=== PATIENT | male | born 1980 | race Caucasian/White ===

== ENCOUNTER 2016-04-29 19:29 | Observation (INO) | payer SELFPAY ==
[~2016-04-29] VITALS: Ht 190.5 cm; Wt 129.0 kg
[2016-04-29] MEDS ORDERED: IV NORMAL SALINE 1000ML BAG 1,000 ML IV SCH (20:04)
[2016-04-29 20:25] LABS: BASO # 0.1 x10^3/uL (0.0-0.2); BASO % 1 % (0-3); EOS % 2 % (0-3); HEMATOCRIT 47.7 % (39.0-53.0); HEMOGLOBIN 16.4 g/dL (13.0-17.5); LYMPH # 3.2 x10^3/uL (1.0-4.8); LYMPH % 37 % (24-48); MEAN CORPUSCULAR HEMOGLOBIN 31 pg (25-35); MEAN CORPUSCULAR HGB CONC 34 g/dL (31-37); MEAN CORPUSCULAR VOLUME 91 fL (79-100); MONO % 10 % (0-9); NEUT % 49 % (31-73); PLATELET COUNT 190 x10^3/uL (140-400); RED BLOOD COUNT 5.23 x10^6/uL (4.30-5.70); RED CELL DISTRIBUTION WIDTH 13.6 % (11.5-14.5); WHITE BLOOD COUNT 8.6 x10^3/uL (4.0-11.0)
[2016-04-29 20:34] LABS: INR 1.2 (0.8-1.1); PROTHROMBIN TIME PATIENT 14.5 SEC (11.7-14.0)
[2016-04-29 20:38] LABS: CALCIUM 9.3 mg/dL (8.5-10.1); CREATININE 0.8 mg/dL (0.7-1.3); GFR 108.8; POTASSIUM 4.1 mmol/L (3.5-5.1)
[2016-04-29 20:45] LABS: DIRECT BILIRUBIN 0.1 mg/dL (0.0-0.2); TOTAL BILIRUBIN 0.7 mg/dL (0.2-1.0); TOTAL PROTEIN 7.7 g/dL (6.4-8.2)
[2016-04-29 22:04] LABS: BILIRUBIN,URINE NEGATIVE (NEG); GLUCOSE,URINE NEGATIVE (NEG); NITRITE,URINE NEGATIVE (NEG); PH,URINE 6.5; PROTEIN,URINE NEGATIVE (NEG-TRACE)
[2016-04-29 22:07] LABS: BARBITURATES NEG (NEG); BENZODIAZEPINES NEG (NEG); CANNABINOIDS NEG (NEG); COCAINE NEG (NEG); METHADONE NEG (NEG); OPIATES NEG (NEG); PHENCYCLIDINE NEG (NEG)
[2016-04-29 22:08] LABS: ETHANOL, URINE NEG (NEG)
[2016-04-29 22:15] LABS: BACTERIA,URINE 0 /HPF (0-FEW); SQUAMOUS EPITHELIAL CELL,UR OCC /LPF
--- NOTE | 2016-04-29 22:48 | PHYS DOC ---
Past Medical History Past Medical History: No Pertinent History Past Surgical History: Cholecystectomy, Other Additional Past Surgical Histo: BACK SX Additional Information: 1-2PPD Alcohol Use: Occasionally Drug Use: None Adult General Chief Complaint Chief Complaint: NEURO SYMPTOMS/DEFICITS HPI HPI 35-year-old male presenting to the emergency department today with unilateral facial weakness on the left side that started this morning. Nursing report states started at 1000AM. I clarified with the patient. He reports it started this morning when he woke up around 8:00. His is here and confirms this. He describes weakness of his left the face including difficulty closing the eye. He also has associated numbness of the face. Location face. Duration constant. No alleviating factors. Review of systems is negative for chest pain shortness of breath abdominal pain nausea vomiting or palpitations. All other review of systems is negative unless otherwise noted in history of present illness. Review of Systems Review of Systems SEE ABOVE. Current Medications Current Medications Current Medications Medications (Trade) Dose Ordered Sig/Giovanny Start Time Stop Time Status Last Admin Dose Admin Sodium Chloride (Iv Sodium Chloride 0.9% 1000ml Bag) 1,000 ml @ 1,000 mls/hr Q1H 04/29/16 20:04 04/29/16 21:03 DC 04/29/16 20:25 1,000 MLS/HR Allergies Allergies Allergies Coded Allergies Type Severity Reaction Last Updated Verified No Known Drug Allergies 04/29/16 No Physical Exam Physical Exam Constitutional: Well developed, well nourished, no acute distress, non-toxic appearance. HENT: Normocephalic, atraumatic, bilateral external ears normal, oropharynx moist, no oral exudates, nose normal. [] Eyes: PERRLA, EOMI, conjunctiva normal, no discharge. Neck: Normal range of motion, no tenderness, supple, no stridor. [] Cardiovascular:Heart rate regular rhythm, no murmur Lungs & Thorax: Bilateral breath sounds clear to auscultation [] Abdomen: Bowel sounds normal, soft, no tenderness, no masses, no pulsatile masses. Skin: Warm, dry, no erythema, no rash. [] Back: No tenderness, no CVA tenderness. Extremities: No tenderness, no cyanosis, no clubbing, ROM intact, no edema. [] Neurologic: Neuro exam: Mental status: Awake oriented and alert x3 Cranial nerves: Extraocular movements intact, eyebrows david bilaterally, however the patient has asymmetry of his smile. He also has difficulty closing his left eye, uvula elevation, shoulder shrug intact, tongue protrusion normal DTRs: 2+ Sensation: equal and normal in all extremities Strength: 5/5 in upper and lower extremities bilaterally Psychologic: Affect normal, judgement normal, mood normal. [] Current Patient Data Vital Signs Vital Signs Date Time Temp Pulse Resp B/P Pulse Ox O2 Delivery O2 Flow Rate FiO2 04/29/16 22:07 66 18 122/75 96 Room Air 04/29/16 19:55 98.1 98.1 Lab Values Laboratory Tests Test 04/29/16 20:11 04/29/16 21:50 White Blood Count 8.6x10^3/uL (4.0-11.0) Red Blood Count 5.23x10^6/uL (4.30-5.70) Hemoglobin 16.4g/dL (13.0-17.5) Hematocrit 47.7% (39.0-53.0) Mean Corpuscular Volume 91fL (79-100) Mean Corpuscular Hemoglobin 31pg (25-35) Mean Corpuscular Hemoglobin Concent 34g/dL (31-37) Red Cell Distribution Width 13.6% (11.5-14.5) Platelet Count 190x10^3/uL (140-400) Neutrophils (%) (Auto) 49% (31-73) Lymphocytes (%) (Auto) 37% (24-48) Monocytes (%) (Auto) 10% (0-9) H Eosinophils (%) (Auto) 2% (0-3) Basophils (%) (Auto) 1% (0-3) Neutrophils # (Auto) 4.2x10^3uL (1.8-7.7) Lymphocytes # (Auto) 3.2x10^3/uL (1.0-4.8) Monocytes # (Auto) 0.8x10^3/uL (0.0-1.1) Eosinophils # (Auto) 0.2x10^3/uL (0.0-0.7) Basophils # (Auto) 0.1x10^3/uL (0.0-0.2) Prothrombin Time 14.5SEC (11.7-14.0) H Prothrombin Time INR 1.2 (0.8-1.1) H PTT 29SEC (24-38) Sodium Level 139mmol/L (136-145) Potassium Level 4.1mmol/L (3.5-5.1) Chloride Level 103mmol/L (98-107) Carbon Dioxide Level 26mmol/L (21-32) Anion Gap 10 (6-14) Blood Urea Nitrogen 13mg/dL (8-26) Creatinine 0.8mg/dL (0.7-1.3) Estimated GFR (Cockcroft-Gault) 108.8 Glucose Level 100mg/dL (70-99) H Calcium Level 9.3mg/dL (8.5-10.1) Total Bilirubin 0.7mg/dL (0.2-1.0) Direct Bilirubin 0.1mg/dL (0.0-0.2) Aspartate Amino Transferase (AST) 31U/L (15-37) Alanine Aminotransferase (ALT) 50U/L (16-63) Alkaline Phosphatase 93U/L (46-116) Troponin I Quantitative < 0.017ng/mL (0.000-0.055) Total Protein 7.7g/dL (6.4-8.2) Albumin 4.0g/dL (3.4-5.0) Urine Collection Type Unknown Urine Color Yellow Urine Clarity Clear Urine pH 6.5 Urine Specific [place] 1.025 Urine Protein Negativemg/dL (NEG-TRACE) Urine Glucose (UA) Negativemg/dL (NEG) Urine Ketones (Stick) Negativemg/dL (NEG) Urine Blood Negative (NEG) Urine Nitrite Negative (NEG) Urine Bilirubin Negative (NEG) Urine Urobilinogen Dipstick 1.0mg/dL (0.2 mg/dL) Urine Leukocyte Esterase Negative (NEG) Urine RBC 1-2/HPF (0-2) Urine WBC 1-4/HPF (0-4) Urine Squamous Epithelial Cells Occ/LPF Urine Bacteria 0/HPF (0-FEW) Urine Mucus Mod/LPF Urine Opiates Screen Neg (NEG) Urine Methadone Screen Neg (NEG) Urine Barbiturates Neg (NEG) Urine Phencyclidine Screen Neg (NEG) Urine Amphetamine/Methamphetamine Neg (NEG) Urine Benzodiazepines Screen Neg (NEG) Urine Cocaine Screen Neg (NEG) Urine Cannabinoids Screen Neg (NEG) Urine Ethyl Alcohol Neg (NEG) Laboratory Tests 04/29/16 20:11 Laboratory Tests 04/29/16 20:11 EKG EKG [] Radiology/Procedures Radiology/Procedures [] Course & Med Decision Making Course & Med Decision Making Pertinent Labs and Imaging studies reviewed. (See chart for details) [] 35-year-old male presenting to the emergency department today with facial asymmetry that started at 8:00 this morning. Vital signs afebrile normal heart rate. Mild hypertension. The patient has history of hypertension high cholesterol and metabolic syndrome. Neurologic exam showed facial asymmetry that spared the forehead. The head unremarkable. Blood glucose within normal limits. Blood work obtained which showed normal CBC. Coags within normal limits. Urinalysis normal. Troponin negative. Chemistry panel unremarkable. Given the patient's neurologic findings the patient was admitted for MRI and neurology consultation. Dragon Disclaimer Dragon Disclaimer This electronic medical record was generated, in whole or in part, using a voice recognition dictation system. Departure Departure Impression: Primary Impression: Facial asymmetry Disposition: ADMITTED INPATIENT Admitting Physician: Carmenza Davison Condition: STABLE Referrals: NO PCP (PCP) SETH GONZALEZ MD Apr 29, 2016 22:48
[2016-04-29] MEDS ORDERED: ONDANSETRON PF 4 MG/2 ML VIAL. IV PRN (23:00)
[2016-04-29] MEDS ORDERED: MORPHINE SULFATE 2 MG/ML DISP.SYRIN. IV PRN (23:00)
--- NOTE | 2016-04-29 23:07 | RAD ---
INDICATION: 35-year-old male with left-sided facial droop and asymmetry all day. COMPARISON: None TECHNIQUE: Axial, noncontrast CT images obtained through the head. One or more of the following individualized dose reduction techniques were utilized for this examination: 1. Automated exposure control; 2. Adjustment of the mA and/or kV according to patient size; 3. Use of iterative reconstruction technique. FINDINGS: No acute intracranial process is identified, specifically no acute blood products, midline shift, mass effect or extra-axial fluid collections. Ventricles and sulci appear appropriate for patient's age. Basilar cisterns are maintained. There is prominence of the extra-axial CSF space at the level of the left insula, which may represent an arachnoid cyst. The visualized paranasal sinuses are clear. Mastoid air cells are clear. No calvarial fracture is present. Overlying scalp is intact. IMPRESSION: No acute intracranial process. Prominence of the CSF space along the left insula, may represent an arachnoid cyst. Electronically signed by: Madelyn Garcia (Apr 29, 2016 23:06:25)
--- NOTE | 2016-04-29 23:57 | ACF ---
Admission Forms Criteria NEUROLOGY GRG Clinical Indications for Admission to Inpatient Care (Place ' X' for any and all applicable criteria): Hospital admission is needed for appropriate care of the patient because of ANY ONE of the following: [ ]I. New-onset or worsening altered mental status remaining after emergency or observation level care (as appropriate) (9)(10)(11) [ ]II. Severe [employer] infections or inflammatory conditions, including ANY ONE of the following(1)(2)(3): [ ]a) Intracranial abscess [ ]b) Spinal abscess or myelitis [ ]c) Tuberculous or other nonbacterial, nonviral [employer] infection(8) [ ]III. Encephalitis(1)(2)(3) [ ]IV. Status epilepticus or repetitive seizures not controlled with emergent treatment [A] (7)(8) [ ]V. Transient alteration in consciousness with high-risk etiology; examples include (12)(13): [ ]a) Cardiovascular source [ ]b) Cataplexy [ ]. Cerebral aneurysm requiring ANY ONE of the following(14): [ ]a) IV antihypertensives or vasoactive agents [ ]b) Sedation and analgesia for suspected leak [ ]c) Need for external ventricular drainage and cerebral perfusion pressure monitoring [ ]d) Emergent evaluation to determine need for surgical clipping or endovascular coiling by interventional radiology. If surgery is required ( Also use Craniotomy, Supratentorial, for Surgery of Bleeding Intracranial Aneurysm (for bleeding aneurysm) or Craniotomy, Supratentorial (for nonbleeding aneurysm) as appropriate. [ ]VII. Altered mental status that is severe or persistent(16) [ ]VIII New-onset severe neurologic findings requiring inpatient care; examples include: [ ]a) Papilledema [ ]b) Cerebral edema [ ]c) Mass effect on imaging [X]IX. New-onset severe neurologic symptom requiring inpatient care indicated by ANY ONE of the following: [ ]a) Aphasia(15) [X]b) Weakness (grade 3 or less) [ ]c) Paralysis (eg, hemiplegia) [ ]d) Spasticity(16) [ ]e) Ataxia(17) [ ]f) Amnesia(18) [ ]g) Involuntary movements(19) [ ]h) Vertigo [ ]i) Other severe neurologic symptom not treatable at alternative level of care (eg, observation care) [ ]X. Guillain-[place] syndrome(20) [ ]XI. Myasthenia gravis crisis or inpatient monitoring need as indicated by ANY ONE of the following(21): [ ]a) Inadequate airway protection [ ]b) Respiratory insufficiency requiring intubation or inpatient. monitoring [ ]c) Progressive dysphagia with failure to thrive [ ]d) Intensive treatment (eg, course of plasmapheresis) with inadequate outpatient situation to monitor patients status [ ]XII. Multiple sclerosis or other acute demyelinating disease requiring inpatient care as indicated by ANY ONE of the following (22)(23): [ ]a) Acute severe deterioration requiring inpatient treatment (eg, IV steroids, plasmapheresis, close observation) [ ]b) Acute complication requiring inpatient care (eg, sepsis, severe decubitus, aspiration) [ ]XIII. Intracranial hypertension (eg, pseudotumor cerebri) requiring inpatient care (eg, acute visual loss, inadequate oral intake) (24) [ ]XIV.Parkinson disease requiring inpatient care (Also use Optimal Recovery Care Criteria or General Recovery Criteria as appropriate) indicated by ANY ONE of the following(25): [ ]a) Infection (eg, aspiration pneumonia) not treatable at alternative level of care [ ]b) Volume depletion not responsive to emergency and observation care treatment (as appropriate) [ ]c) Life-threatening agitation or psychotic behavior not treatable on emergency, observation care, or alternative level (eg, residential) basis [ ]d) Severe medication withdrawal effects (eg, freezing, neuroleptic malignant syndrome) not responsive to emergency and observation care treatment (as appropriate) [ ]e) Other severe manifestation not treatable at alternative level of care [ ]XV.Amyotrophic lateral sclerosis with inpatient care needs as indicated by ANY ONE of the following(26): [ ]a) Acute complications requiring inpatient care (Use Optimal Recovery Care Criteria or General Recovery Criteria as appropriate); examples include: [ ]i) Aspiration pneumonia [ ]ii) Sepsis [ ]b) Dehydration or hypovolemia (not responsive to emergency and observation care treatment as appropriate) AND artificial support desired [ ]c) Inadequate airway protection AND artificial support desired [ ]d) Severe ventilatory insufficiency AND artificial support desired [ ]XVI.Severe myopathy, neuropathy, or other neuromuscular disease as indicated by ANY ONE of the following: [ ]a) New-onset severe diffuse weakness (eg, strength 3/5 or less) [ ]b) Severe dysphagia [ ]c) Dyspnea at rest or with minimal exertion (new) [ ]d) Inadequate airway protection [ ]e) Inadequate ventilation as indicated by ANY ONE of the following : [ ]i) Partial pressure of carbon dioxide greater than 44 mm Hg (5.9 kPa) (new) [ ]ii) Reduced peak expiratory flow rate (new) [ ]iii) Vital capacity less than 50% of predicted ( less than 15 mL/kg) [ ]iv) Peak inspiratory force less negative than -30 cm H20 (-2942 Pa) [ ]XVII.Complications of congenital or degenerative disease (eg, infection, seizures, dehydration, injury) not responsive to emergency and observation care treatment (as appropriate ) [C](16)(29)(30) [ ]XVIII.Suspected or confirmed nerve or muscle toxic injury, including ANY ONE of the following: [ ]a) Rhabdomyolysis(31) [ ]b) Botulism(32) [ ]c) Other severe toxin-induced sign or symptom [ ]XIX. Neurologic trauma requiring inpatient treatment (medical) indicated by ANY ONE of the following(33)(34): [ ]a) Vital signs or neurologic signs more frequently than every 4 hours [ ]b) Hyperosmolar therapy [ ]c) Respiratory monitoring [ ]d) Intracranial pressure monitoring and treatment [ ]e) Stabilization and immobilization device placement (eg, braces, body jacket) [ ]f) Intubation & mechanical ventilation for airway protection or therapeutic hyperventilation [ ]g) Other treatment or monitoring needed that requires inpatient level of care [ ]XX.Complications of neurologic devices (eg, ventricular shunt, neurostimulator) requiring ANY ONE of the following(35)(36): [ ]a) IV antibiotics with monitoring while awaiting culture results [ ]b) Monitoring for hydrocephalus [ ]XXI Vasculitis with ANY ONE of the following(4)(5): [ ]a) Altered mental status [ ]b) Psychosis [ ]c) Seizures [ ]XXII. Neurology condition and ALL of the following: [ ]a) Symptom or finding for which emergency and observation care have failed or are not considered appropriate (Use General Criteria: Observation Care as appropriate) [ ]b) Presence of ANY ONE of the following: [ ]i) A General Admission Criteria [ ]ii A Pediatric General Admission Criteria The original [facility] content created by [employer]into has been revised. The portions of the content which have been revised are identified through the use of italic text or in bold, and [facility] has neither reviewed nor approved the modified material. All other unmodified content is copyright [facility] Please see references footnoted in the original [facility] edition 2016 Admission Criteria Met?: Yes EVER CORTEZ Apr 29, 2016 23:57
[2016-04-30] VITALS (7 sets, daily range): BP systolic 120–143; BP diastolic 73–95
[2016-04-30] MEDS ORDERED: ASPIRIN 81 MG TAB.CHEW PO ONE (00:30)
--- NOTE | 2016-04-30 06:33 | EKG ---
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
[2016-04-30 06:36] LABS: BASO % 1 % (0-3); EOS % 3 % (0-3); HEMATOCRIT 45.6 % (39.0-53.0); HEMOGLOBIN 15.8 g/dL (13.0-17.5); LYMPH # 2.9 x10^3/uL (1.0-4.8); LYMPH % 37 % (24-48); MEAN CORPUSCULAR HEMOGLOBIN 32 pg (25-35); MEAN CORPUSCULAR HGB CONC 35 g/dL (31-37); MEAN CORPUSCULAR VOLUME 91 fL (79-100); MONO % 10 % (0-9); NEUT % 49 % (31-73); PLATELET COUNT 174 x10^3/uL (140-400); RED BLOOD COUNT 5.02 x10^6/uL (4.30-5.70); RED CELL DISTRIBUTION WIDTH 13.4 % (11.5-14.5); WHITE BLOOD COUNT 7.9 x10^3/uL (4.0-11.0)
[2016-04-30 06:46] LABS: CALCIUM 8.9 mg/dL (8.5-10.1); CREATININE 0.7 mg/dL (0.7-1.3); GFR 126.9; POTASSIUM 4.2 mmol/L (3.5-5.1)
--- NOTE | 2016-04-30 08:01 | RAD ---
EXAM: Chest one view. HISTORY: Smoking history. Stroke symptoms. COMPARISON: None. FINDINGS: A frontal view of the chest is obtained. A small retrocardiac opacity is likely normal vasculature. There are no clear confluent infiltrates. There is no pneumothorax or pleural effusion. The heart is not enlarged. IMPRESSION: 1. No confluent infiltrates.
[2016-04-30] MEDS ORDERED: FLU VACC QUAD 2016-17 (36MOS+)/PF 0.5 ML SYRINGE. VAX IM ONE (09:00)
[2016-04-30] MEDS ORDERED: ACETAMINOPHEN 500 MG TABLET PO PRN (09:00)
[2016-04-30] MEDS ORDERED: ONDANSETRON PF 4 MG/2 ML VIAL. IV PRN (09:00)
[2016-04-30] MEDS ORDERED: PRED50TA PO (10:45)
--- NOTE | 2016-04-30 10:51 | PDOC ---
Provider Note Provider Note Acute onset left sided facial paralysis, hypersensitivity to left side scalp ( no lesions), left ear pain - otoscope done, no vesicles. No other FNDs, Only past medical is HTN PE: Shallow Left NLF, midline tongue protrusion, can wrinkle eyebrow but forehead lines seem to be minimal compared to R side Clinically PEREZ's palsy PLAn: Await MRI and neuro Rx is pred 60 qD x 7 days - see Rx Ok to dc later if neuro agrees and mRI neg RX inc de [place] pt and DICTATED [id number] KEYLA MIXON MD Apr 30, 2016 10:51
[2016-04-30] MEDS ORDERED: GADOBUTROL 10 MMOL/10 ML VIAL IV ONE (12:00)
--- NOTE | 2016-04-30 12:37 | RAD ---
PROCEDURE Brain MRI with and without contrast. HISTORY Left facial numbness. TECHNIQUE Multiplanar and multi sequence magnetic resonance imaging of the brain was performed prior to and following the administration of 10 cc Gadavist intravenous contrast. COMPARISON Head CT dated 04/29/2016. FINDINGS There is no restricted diffusion to suggest acute or subacute infarction. There is no susceptibility effect to suggest hemorrhage. There is a punctate focus of decreased signal on susceptibility weighted images within the right occipital lobe, likely artifactual rather than due to chronic microhemorrhage. There is a cerebral spinal fluid intensity extra-axial lesion along the left insula measuring 3.9 cm in maximum dimension, consistent with an arachnoid cyst. No suspicious enhancing lesion is seen. There are few foci of T2/FLAIR hyperintensity within the cerebral white matter and left deniz, possibly artifactual. There is no midline shift. There is no hydrocephalus. The orbits are unremarkable. There is mild ethmoid and maxillary sinus mucosal thickening. There are normal flow voids within the cerebral vessels. IMPRESSION 1. No acute intracranial finding. 2. Few foci of signal change within the cerebral white matter and left deniz, possibly artifactual. The possibility of foci of signal change due to chronic migraine headaches and chronic small vessel disease can be considered in the appropriate clinical setting. The imaging appearance does not suggest demyelinating disease. 3. 3.9 cm arachnoid cyst along the left insula. Electronically signed by: Elizabeth Power (Apr 30, 2016 12:35:39)
--- NOTE | 2016-04-30 13:28 | SSS ---
ADMIT DATE: 04/30/2016 SUBJECTIVE: Acute onset of left-sided paralysis, weakness, and drooping of the left face. HISTORY OF PRESENT ILLNESS: The patient is a 35-year-old, obese, male with history of hypertension, on medication, no other past medical history, who comes in with 2 to 3 days onset noticing left-sided facial droop. He has paralysis of the left face, shallow nasolabial folds on the left, can wrinkle the forehead though minimally as compared to the right. No other neurologic signs or symptoms. Clinically, it looks like Freed's. The patient has never had this before. Also, he complains of some left ear pain, left-sided headache, and hypersensitivity of the left scalp area. The patient was admitted to rule out any stroke. Symptoms were started at 8:00 a.m. prior to admission which was over 12 hours prior, upon the time he reached ER. ROS is negative. He never had these symptoms before. I did inspect the left ear for any vesicles, etc., and I did not find any. PAST MEDICAL HISTORY: Hypertension. PAST SURGICAL HISTORY: Nothing significant. SOCIAL HISTORY: No smoking, alcohol, or street drugs. ALLERGIES: None. FAMILY HISTORY: Noncontributory. REVIEW OF SYSTEMS: All 14-point systems were reviewed. Positives are in the HPI. PHYSICAL EXAMINATION: GENERAL: Awake, alert, and oriented x 3. Not in acute respiratory distress. HEENT: Unremarkable. Cerumen in the left ear canal. No tenderness. No hyperemia, no vesicles appreciated. LUNGS: Clear to auscultation bilaterally. HEART: Normal rate and rhythm. No murmurs, rubs, or gallops. ABDOMEN: Soft, flabby, nontender. Normoactive bowel sounds. GENITALIA: Appropriate for age. EXTREMITIES: Negative edema. Pulses are full and equal. No pallor, cyanosis, or clubbing. NEUROLOGIC: He has shallow left nasolabial fold. Tongue protrusion is midline. Can wrinkle the eyebrow but has shallow forehead lines as compared to the right side of the forehead. Muscle manual testing is 5 out of 5 in all 4 extremities. No sensory deficit. DTRs +2. The rest of the neuro exam is unremarkable. ASSESSMENT AND PLAN: 1. 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 Treatment is 60 mg to 80 mg once a day for about a week. I did write for prescription and steroid taper. Await MRI ordered to make sure there is not a central cause. Await Neurology input. 2. Hypertension, controlled. Continue home meds. 3. Obesity. Advised. PLAN: Plan of care as above. The patient was admitted overnight. MRI will be done. If that is negative and Neurology agrees that this is Freed's palsy, we will discharge the patient later today on prednisone 60 mg once a day and then taper for a week's course. I discussed with the patient's , the patient, and RN. KEYLA MIXON MD DR: /nts JOB#: [id number] / [id number]
--- NOTE | 2016-04-30 18:46 | PDOC2 ---
NEUROLOGY CONSULT Date of Admission Date of Admission DATE: 04/30/16 TIME: 18:31 Reason for Consult Reason for Consult: IMPRESSION: Left side facial drooping, Freed's palsy. 3.9 cm arachnoid cyst in left insula. Smoking Drinking Obesity. No evidence of CVA or stroke. RECOMMENDATIONS/PLAN: Acyclovir 400 mg tid to qid x 7 to 10 days. Prednisone 40 mg daily with titration down by decreasing 10 mg q 2 days until gone. Monitoring HR, BP. Please consult NS for arachnoid cyst. Discussed with his at bedside on 04/30/16. HISTORY OF THE PRESENT ILLNESS: 35-y-old male patient with Hx of longstanding smoking and drinking developed symptoms of left side facial palsy to come to the ER seeking medical attention. No symptoms of facial pain, decreased hearing. No motor or sensory deficits. PAST MEDICAL HISTORY: Please see above. PAST SURGERY HISTORY: No major surgery recently. ALLERGY: Unknown MEDICATIONS: Refer to [facility] HISTORY: Non contributory. SOCIAL HISTORY: Lives at home. Denies illicit drug use. He smokes 2 pack of cigarettes a day for 16 years. He drinks 12 OZ x 3 to 4 of [place] on weekend for 17 years. REVIEW OF SYSTEMS: Constitutional: No malnutrition, weight loss, cachexia. Head: No traumatic brain or head injury. Skin: No edema, or rash. Ear: No infection, tinnitus. Eyes: No vision loss or color blindness. Nose: No bleeding or purulent discharges. Hearing: No hearing decrease. Neck: No injury. Cardiac: No IL, arrhythmia. Pulmonary: No pneumonia. GI: No GI ulcer, GI bleeding. Urinary/genital: No dysuria, hematuria, incontinence, urinary retention. Endocrinologic: obesity Skeletomuscular: No muscular atrophy, deformity. Neurological: see HP. Psychiatric: Denies drug use/abuse. Otherwise, not -jjivc review of systems. PHYSICAL EXAMINATION: General appearance is in acute distress. HEENT: Normocephalic and nontraumatic. Eyes, nose, ears, and throat are unremarkable. Neck is supple. No lymphadenopathy. No crepitus. Cardiovascular: S1, S2, regular rate and rhythm. Pulmonary: Clear to auscultation bilaterally. Abdomen: Bowel sounds are positive. Abdomen is soft, nontender, and nondistended. Extremities: No rash, lesions, or edema. No restriction of range of motion NEUROLOGICAL EXAMINATION: Alert Oriented to time, place and person. PERRL. EOMI. CN: left VII palsy, peripheral. Muscle tone: within normal. Muscle strength: 5 DTR: 2 Plantar reflex: Flexor response bilaterally Gait: not examined in bed. Sensory exam: no abnormal findings. No cerebellar signs elicited. F-T-N test fine. Current Medications Current Medications Current Medications Sodium Chloride (Iv Sodium Chloride 0.9% 1000ml Bag) 1,000 ml @ 1,000 mls/hr Q1H IV Last administered on 04/29/16 20:25; Start 04/29/16 at 20:04; Stop at 21:03; Status DC Ondansetron HCl (Zofran) 4 mg PRN Q8HRS PRN IV NAUSEA/VOMITING; Start 04/29/16 at 23:00; Stop 04/30/16 at 09:02; Status DC Morphine Sulfate 2 mg PRN Q2HR PRN IV SEVERE PAIN; Start 04/29/16 at 23:00; Stop 04/30/16 at 22:59 Aspirin (Children'S Aspirin) 324 mg 1X ONCE PO Last administered on 04/30/16 00:37; Start 04/30/16 at 00:30; Stop 04/30/16 at 00:31; Status DC Influenza Virus Vaccine Quadrival (Fluarix Quad [id number] Syringe) 0.5 ml ONCE ONCE VAX IM Last administered on 04/30/16 16:08; Start 04/30/16 at 09:00; Stop 04/30/16 at 09:01; Status DC Ondansetron HCl (Zofran) 4 mg PRN Q6HRS PRN IV NAUSEA/VOMITING; Start 04/30/16 at 09:00 Acetaminophen (Tylenol) 500 mg PRN Q6HRS PRN PO MILD PAIN / TEMP; Start at 09:00 Gadobutrol (Gadavist) 10 mmol 1X ONCE IV Last administered on 04/30/16 12:06; Start 04/30/16 at 12:00; Stop 04/30/16 at 12:01; Status DC Allergies Allergies: Coded Allergies: No Known Drug Allergies (Unverified , 04/29/16) Vitals VITALS Vital Signs Date Time Temp Pulse Resp B/P Pulse Ox O2 Delivery O2 Flow Rate FiO2 04/30/16 15:00 97.5 72 18 143/87 94 Room Air 97.5 Labs Labs Laboratory Tests Test 04/29/16 20:11 04/29/16 21:50 04/30/16 06:05 White Blood Count 8.6x10^3/uL (4.0-11.0) 7.9x10^3/uL (4.0-11.0) Red Blood Count 5.23x10^6/uL (4.30-5.70) 5.02x10^6/uL (4.30-5.70) Hemoglobin 16.4g/dL (13.0-17.5) 15.8g/dL (13.0-17.5) Hematocrit 47.7% (39.0-53.0) 45.6% (39.0-53.0) Mean Corpuscular Volume 91fL (79-100) 91fL (79-100) Mean Corpuscular Hemoglobin 31pg (25-35) 32pg (25-35) Mean Corpuscular Hemoglobin Concent 34g/dL (31-37) 35g/dL (31-37) Red Cell Distribution Width 13.6% (11.5-14.5) 13.4% (11.5-14.5) Platelet Count 190x10^3/uL (140-400) 174x10^3/uL (140-400) Neutrophils (%) (Auto) 49% (31-73) 49% (31-73) Lymphocytes (%) (Auto) 37% (24-48) 37% (24-48) Monocytes (%) (Auto) 10% (0-9) 10% (0-9) Eosinophils (%) (Auto) 2% (0-3) 3% (0-3) Basophils (%) (Auto) 1% (0-3) 1% (0-3) Neutrophils # (Auto) 4.2x10^3uL (1.8-7.7) 3.9x10^3uL (1.8-7.7) Lymphocytes # (Auto) 3.2x10^3/uL (1.0-4.8) 2.9x10^3/uL (1.0-4.8) Monocytes # (Auto) 0.8x10^3/uL (0.0-1.1) 0.8x10^3/uL (0.0-1.1) Eosinophils # (Auto) 0.2x10^3/uL (0.0-0.7) 0.3x10^3/uL (0.0-0.7) Basophils # (Auto) 0.1x10^3/uL (0.0-0.2) 0.0x10^3/uL (0.0-0.2) Prothrombin Time 14.5SEC (11.7-14.0) Prothromb Time International Ratio 1.2 (0.8-1.1) Activated Partial Thromboplast Time 29SEC (24-38) Sodium Level 139mmol/L (136-145) 139mmol/L (136-145) Potassium Level 4.1mmol/L (3.5-5.1) 4.2mmol/L (3.5-5.1) Chloride Level 103mmol/L (98-107) 107mmol/L (98-107) Carbon Dioxide Level 26mmol/L (21-32) 23mmol/L (21-32) Anion Gap 10 (6-14) 9 (6-14) Blood Urea Nitrogen 13mg/dL (8-26) 12mg/dL (8-26) Creatinine 0.8mg/dL (0.7-1.3) 0.7mg/dL (0.7-1.3) Estimated GFR (Cockcroft-Gault) 108.8 126.9 Glucose Level 100mg/dL (70-99) 98mg/dL (70-99) Calcium Level 9.3mg/dL (8.5-10.1) 8.9mg/dL (8.5-10.1) Total Bilirubin 0.7mg/dL (0.2-1.0) Direct Bilirubin 0.1mg/dL (0.0-0.2) Aspartate Amino Transf (AST/SGOT) 31U/L (15-37) Alanine Aminotransferase (ALT/SGPT) 50U/L (16-63) Alkaline Phosphatase 93U/L (46-116) Troponin I Quantitative < 0.017ng/mL (0.000-0.055) Total Protein 7.7g/dL (6.4-8.2) Albumin 4.0g/dL (3.4-5.0) Urine Collection Type Unknown Urine Color Yellow Urine Clarity Clear Urine pH 6.5 Urine Specific [place] 1.025 Urine Protein Negativemg/dL (NEG-TRACE) Urine Glucose (UA) Negativemg/dL (NEG) Urine Ketones (Stick) Negativemg/dL (NEG) Urine Blood Negative (NEG) Urine Nitrite Negative (NEG) Urine Bilirubin Negative (NEG) Urine Urobilinogen Dipstick 1.0mg/dL (0.2 mg/dL) Urine Leukocyte Esterase Negative (NEG) Urine RBC 1-2/HPF (0-2) Urine WBC 1-4/HPF (0-4) Urine Squamous Epithelial Cells Occ/LPF Urine Bacteria 0/HPF (0-FEW) Urine Mucus Mod/LPF Urine Opiates Screen Neg (NEG) Urine Methadone Screen Neg (NEG) Urine Barbiturates Neg (NEG) Urine Phencyclidine Screen Neg (NEG) Urine Amphetamine/Methamphetamine Neg (NEG) Urine Benzodiazepines Screen Neg (NEG) Urine Cocaine Screen Neg (NEG) Urine Cannabinoids Screen Neg (NEG) Urine Ethyl Alcohol Neg (NEG) Erythrocyte Sedimentation Rate 7 (0-15) Laboratory Tests Test 04/29/16 20:11 04/29/16 21:50 04/30/16 06:05 White Blood Count 8.6x10^3/uL (4.0-11.0) 7.9x10^3/uL (4.0-11.0) Red Blood Count 5.23x10^6/uL (4.30-5.70) 5.02x10^6/uL (4.30-5.70) Hemoglobin 16.4g/dL (13.0-17.5) 15.8g/dL (13.0-17.5) Hematocrit 47.7% (39.0-53.0) 45.6% (39.0-53.0) Mean Corpuscular Volume 91fL (79-100) 91fL (79-100) Mean Corpuscular Hemoglobin 31pg (25-35) 32pg (25-35) Mean Corpuscular Hemoglobin Concent 34g/dL (31-37) 35g/dL (31-37) Red Cell Distribution Width 13.6% (11.5-14.5) 13.4% (11.5-14.5) Platelet Count 190x10^3/uL (140-400) 174x10^3/uL (140-400) Neutrophils (%) (Auto) 49% (31-73) 49% (31-73) Lymphocytes (%) (Auto) 37% (24-48) 37% (24-48) Monocytes (%) (Auto) 10% (0-9) 10% (0-9) Eosinophils (%) (Auto) 2% (0-3) 3% (0-3) Basophils (%) (Auto) 1% (0-3) 1% (0-3) Neutrophils # (Auto) 4.2x10^3uL (1.8-7.7) 3.9x10^3uL (1.8-7.7) Lymphocytes # (Auto) 3.2x10^3/uL (1.0-4.8) 2.9x10^3/uL (1.0-4.8) Monocytes # (Auto) 0.8x10^3/uL (0.0-1.1) 0.8x10^3/uL (0.0-1.1) Eosinophils # (Auto) 0.2x10^3/uL (0.0-0.7) 0.3x10^3/uL (0.0-0.7) Basophils # (Auto) 0.1x10^3/uL (0.0-0.2) 0.0x10^3/uL (0.0-0.2) Prothrombin Time 14.5SEC (11.7-14.0) Prothromb Time International Ratio 1.2 (0.8-1.1) Activated Partial Thromboplast Time 29SEC (24-38) Sodium Level 139mmol/L (136-145) 139mmol/L (136-145) Potassium Level 4.1mmol/L (3.5-5.1) 4.2mmol/L (3.5-5.1) Chloride Level 103mmol/L (98-107) 107mmol/L (98-107) Carbon Dioxide Level 26mmol/L (21-32) 23mmol/L (21-32) Anion Gap 10 (6-14) 9 (6-14) Blood Urea Nitrogen 13mg/dL (8-26) 12mg/dL (8-26) Creatinine 0.8mg/dL (0.7-1.3) 0.7mg/dL (0.7-1.3) Estimated GFR (Cockcroft-Gault) 108.8 126.9 Glucose Level 100mg/dL (70-99) 98mg/dL (70-99) Calcium Level 9.3mg/dL (8.5-10.1) 8.9mg/dL (8.5-10.1) Total Bilirubin 0.7mg/dL (0.2-1.0) Direct Bilirubin 0.1mg/dL (0.0-0.2) Aspartate Amino Transf (AST/SGOT) 31U/L (15-37) Alanine Aminotransferase (ALT/SGPT) 50U/L (16-63) Alkaline Phosphatase 93U/L (46-116) Troponin I Quantitative < 0.017ng/mL (0.000-0.055) Total Protein 7.7g/dL (6.4-8.2) Albumin 4.0g/dL (3.4-5.0) Urine Collection Type Unknown Urine Color Yellow Urine Clarity Clear Urine pH 6.5 Urine Specific [place] 1.025 Urine Protein Negativemg/dL (NEG-TRACE) Urine Glucose (UA) Negativemg/dL (NEG) Urine Ketones (Stick) Negativemg/dL (NEG) Urine Blood Negative (NEG) Urine Nitrite Negative (NEG) Urine Bilirubin Negative (NEG) Urine Urobilinogen Dipstick 1.0mg/dL (0.2 mg/dL) Urine Leukocyte Esterase Negative (NEG) Urine RBC 1-2/HPF (0-2) Urine WBC 1-4/HPF (0-4) Urine Squamous Epithelial Cells Occ/LPF Urine Bacteria 0/HPF (0-FEW) Urine Mucus Mod/LPF Urine Opiates Screen Neg (NEG) Urine Methadone Screen Neg (NEG) Urine Barbiturates Neg (NEG) Urine Phencyclidine Screen Neg (NEG) Urine Amphetamine/Methamphetamine Neg (NEG) Urine Benzodiazepines Screen Neg (NEG) Urine Cocaine Screen Neg (NEG) Urine Cannabinoids Screen Neg (NEG) Urine Ethyl Alcohol Neg (NEG) Erythrocyte Sedimentation Rate 7 (0-15) PATRICK STRONG MD Apr 30, 2016 18:46
[2016-04-30] MEDS: THIAMINE 100 MG TABLET. PO SCH (20:17)
[2016-04-30] MEDS: ACYCLOVIR 200 MG CAPSULE PO SCH (20:17)
[2016-04-30] MEDS: PREDNISONE 10 MG TABLET PO SCH (20:17)
[2016-05-01 07:00] VITALS: BP 124/85
[2016-05-01] MEDS: THIAMINE 100 MG TABLET. PO SCH (07:57)
[2016-05-01] MEDS: PREDNISONE 10 MG TABLET PO SCH (07:57)
[2016-05-01] MEDS: ACYCLOVIR 200 MG CAPSULE PO SCH (08:01)
[2016-05-01 10:48] VITALS: BP 145/99
--- NOTE | 2016-05-01 10:55 | PDOC ---
PROGRESS NOTES Subjective Subjective MRI brain reviewed- uncomplicated arachnoid cyst in typical location no specific treatment indicated he will be followed by neurology call with questions Objective Objective Vital Signs Date Time Temp Pulse Resp B/P Pulse Ox O2 Delivery O2 Flow Rate FiO2 05/01/16 10:48 97.9 77 18 145/99 96 Room Air 97.9 Intake and Output 05/01/16 07:00 Intake Total 1950 ml Balance 1950 ml Intake Oral 1950 ml # Voids 9 Assessment Assessment Problems Medical Problems: (1) Facial asymmetry Status: Acute Comment Review of Relevant I have reviewed the following items kecia (where applicable) has been applied. Labs Laboratory Tests Test 04/29/16 20:11 04/29/16 21:50 04/30/16 06:05 White Blood Count 8.6x10^3/uL (4.0-11.0) 7.9x10^3/uL (4.0-11.0) Red Blood Count 5.23x10^6/uL (4.30-5.70) 5.02x10^6/uL (4.30-5.70) Hemoglobin 16.4g/dL (13.0-17.5) 15.8g/dL (13.0-17.5) Hematocrit 47.7% (39.0-53.0) 45.6% (39.0-53.0) Mean Corpuscular Volume 91fL (79-100) 91fL (79-100) Mean Corpuscular Hemoglobin 31pg (25-35) 32pg (25-35) Mean Corpuscular Hemoglobin Concent 34g/dL (31-37) 35g/dL (31-37) Red Cell Distribution Width 13.6% (11.5-14.5) 13.4% (11.5-14.5) Platelet Count 190x10^3/uL (140-400) 174x10^3/uL (140-400) Neutrophils (%) (Auto) 49% (31-73) 49% (31-73) Lymphocytes (%) (Auto) 37% (24-48) 37% (24-48) Monocytes (%) (Auto) 10% (0-9) 10% (0-9) Eosinophils (%) (Auto) 2% (0-3) 3% (0-3) Basophils (%) (Auto) 1% (0-3) 1% (0-3) Neutrophils # (Auto) 4.2x10^3uL (1.8-7.7) 3.9x10^3uL (1.8-7.7) Lymphocytes # (Auto) 3.2x10^3/uL (1.0-4.8) 2.9x10^3/uL (1.0-4.8) Monocytes # (Auto) 0.8x10^3/uL (0.0-1.1) 0.8x10^3/uL (0.0-1.1) Eosinophils # (Auto) 0.2x10^3/uL (0.0-0.7) 0.3x10^3/uL (0.0-0.7) Basophils # (Auto) 0.1x10^3/uL (0.0-0.2) 0.0x10^3/uL (0.0-0.2) Prothrombin Time 14.5SEC (11.7-14.0) Prothromb Time International Ratio 1.2 (0.8-1.1) Activated Partial Thromboplast Time 29SEC (24-38) Sodium Level 139mmol/L (136-145) 139mmol/L (136-145) Potassium Level 4.1mmol/L (3.5-5.1) 4.2mmol/L (3.5-5.1) Chloride Level 103mmol/L (98-107) 107mmol/L (98-107) Carbon Dioxide Level 26mmol/L (21-32) 23mmol/L (21-32) Anion Gap 10 (6-14) 9 (6-14) Blood Urea Nitrogen 13mg/dL (8-26) 12mg/dL (8-26) Creatinine 0.8mg/dL (0.7-1.3) 0.7mg/dL (0.7-1.3) Estimated GFR (Cockcroft-Gault) 108.8 126.9 Glucose Level 100mg/dL (70-99) 98mg/dL (70-99) Calcium Level 9.3mg/dL (8.5-10.1) 8.9mg/dL (8.5-10.1) Total Bilirubin 0.7mg/dL (0.2-1.0) Direct Bilirubin 0.1mg/dL (0.0-0.2) Aspartate Amino Transf (AST/SGOT) 31U/L (15-37) Alanine Aminotransferase (ALT/SGPT) 50U/L (16-63) Alkaline Phosphatase 93U/L (46-116) Troponin I Quantitative < 0.017ng/mL (0.000-0.055) Total Protein 7.7g/dL (6.4-8.2) Albumin 4.0g/dL (3.4-5.0) Urine Collection Type Unknown Urine Color Yellow Urine Clarity Clear Urine pH 6.5 Urine Specific [place] 1.025 Urine Protein Negativemg/dL (NEG-TRACE) Urine Glucose (UA) Negativemg/dL (NEG) Urine Ketones (Stick) Negativemg/dL (NEG) Urine Blood Negative (NEG) Urine Nitrite Negative (NEG) Urine Bilirubin Negative (NEG) Urine Urobilinogen Dipstick 1.0mg/dL (0.2 mg/dL) Urine Leukocyte Esterase Negative (NEG) Urine RBC 1-2/HPF (0-2) Urine WBC 1-4/HPF (0-4) Urine Squamous Epithelial Cells Occ/LPF Urine Bacteria 0/HPF (0-FEW) Urine Mucus Mod/LPF Urine Opiates Screen Neg (NEG) Urine Methadone Screen Neg (NEG) Urine Barbiturates Neg (NEG) Urine Phencyclidine Screen Neg (NEG) Urine Amphetamine/Methamphetamine Neg (NEG) Urine Benzodiazepines Screen Neg (NEG) Urine Cocaine Screen Neg (NEG) Urine Cannabinoids Screen Neg (NEG) Urine Ethyl Alcohol Neg (NEG) Erythrocyte Sedimentation Rate 7 (0-15) Medications Current Medications Sodium Chloride (Iv Sodium Chloride 0.9% 1000ml Bag) 1,000 ml @ 1,000 mls/hr Q1H IV Last administered on 04/29/16t 20:25; Start 04/29/16 at 20:04; Stop at 21:03; Status DC Ondansetron HCl (Zofran) 4 mg PRN Q8HRS PRN IV NAUSEA/VOMITING; Start 04/29/16 at 23:00; Stop 04/30/16 at 09:02; Status DC Morphine Sulfate 2 mg PRN Q2HR PRN IV SEVERE PAIN; Start 04/29/16 at 23:00; Stop 04/30/16 at 22:59; Status DC Aspirin (Children'S Aspirin) 324 mg 1X ONCE PO Last administered on 04/30/16 00:37; Start 04/30/16 at 00:30; Stop 04/30/16 at 00:31; Status DC Influenza Virus Vaccine Quadrival (Fluarix Quad [id number] Syringe) 0.5 ml ONCE ONCE VAX IM Last administered on 04/30/16 16:08; Start 04/30/16 at 09:00; Stop 04/30/16 at 09:01; Status DC Ondansetron HCl (Zofran) 4 mg PRN Q6HRS PRN IV NAUSEA/VOMITING; Start 04/30/16 at 09:00 Acetaminophen (Tylenol) 500 mg PRN Q6HRS PRN PO MILD PAIN / TEMP; Start at 09:00 Gadobutrol (Gadavist) 10 mmol 1X ONCE IV Last administered on 04/30/16 12:06; Start 04/30/16 at 12:00; Stop 04/30/16 at 12:01; Status DC Acyclovir (Zovirax) 400 mg TID PO Last administered on 05/01/16 08:01; Start at 21:00 Prednisone (Prednisone) 40 mg DAILY PO Last administered on 05/01/16 07:57; Start 04/30/16 at 19:00 Thiamine HCl (Vitamin B-1) 100 mg DAILY PO Last administered on 05/01/16 07:57 ; Start 04/30/16 at 19:00 Vitals/I & O Vital Sign - Last 24 Hours 04/30/16 04/30/16 04/30/16 04/30/16 11:00 15:00 19:00 20:00 Temp 97.9 97.5 97.8 97.9 97.5 97.8 Pulse 70 72 73 Resp 18 18 18 B/P 141/93 143/87 141/91 Pulse Ox 97 94 93 O2 Delivery Room Air Room Air Room Air Room Air 04/30/16 05/01/16 05/01/16 23:00 07:00 10:48 Temp 98.0 97.9 97.9 98.0 97.9 97.9 Pulse 72 63 77 Resp 18 18 18 B/P 138/95 124/85 145/99 Pulse Ox 92 94 96 O2 Delivery Room Air Room Air Room Air Intake and Output 04/30/16 04/30/16 05/01/16 15:00 23:00 07:00 Intake Total 700 ml 1250 ml Balance 700 ml 1250 ml SABINE BATRES MD May 01, 2016 10:54
--- NOTE | 2016-05-01 12:16 | PDOC ---
Provider Note Provider Note Pt did not dc yesterday bec of left arachnoid cyst, 3.7 cms on MRI, neurology consulted neurosx Neurosx called - no intervention PLAN: Dc today Rx [place] done [place] , pt and RN APR and dc summ done KEYLA MIXON MD May 01, 2016 12:16
== END 2016-05-01 13:00 | disposition home or self-care (01) ==
LOC: ER 19:29 → 5 SOUTH 22:51
PROVIDERS: ADMIT Internal Medicine; ATTEND Internal Medicine
DX: G81.94 Hemiplegia, unspecified affecting left nondominant side (principal); R53.1 Weakness; E66.9 Obesity, unspecified; G51.0 Bell's palsy; G93.0 Cerebral cysts; I10 Essential (primary) hypertension; Z79.899 Other long term (current) drug therapy; Z87.891 Personal history of nicotine dependence; Z23 Encounter for immunization
CPT/HCPCS: 36415; 70450; 70553; 71010; 80048; 80076; 81001; 84484; 85027; 85610; 85651; 85730; 90471; 90686; 93005; 96361; 96374; 99285; A9585; G0378; G0481; J7030; J7512; G0379